=== PATIENT | female | born 1990 | race American Indian/Alaskan Native ===

== ENCOUNTER 2018-05-01 05:45 | Inpatient (IN) | payer BC, MEDICAID ==
[2018-05-01] MEDS ORDERED: ePHEDrine SULFATE IV PRN ×2 (09:32→11:00)
[2018-05-01] MEDS ORDERED: BRETHINE IVP PRN (09:32)
[2018-05-01] MEDS ORDERED: XYLOCAINE 2% INFILTRATI ONE (09:32)
[2018-05-01] MEDS ORDERED: STADOL IV PRN (09:32)
[2018-05-01] MEDS ORDERED: BRETHINE SUB-Q PRN (09:32)
[2018-05-01] MEDS ORDERED: PHENERGAN PO PRN ×2 (09:32→20:30)
--- NOTE | 2018-05-01 09:32 | History and Physical Report ---
History of Present Illness Date of examination: 05/01/18 Date of admission: 05/01/18 09:23 History of present illness: She presented to labor and delivery with complaints of regular contractions since 4 AM this morning. Patient states contractions every 5 minutes. Initial exam by triage nurse service the 2 cm. After walking on recheck patient's cervix had changed to 4 cm. Patient being admitted in active labor. Patient's course complicated by not been seen since 34 weeks and therefore unknown group B status. Menstrual History Regularity: regular Menses every: 28 days Duration: 5 LMP: 07/30/2017 LMP reliability: definite LMP character: normal test type: urine test Date: 09/26/2017 BC at conception: none Planned ? no EDC Calculations LMP: 05/06/2018 EDC Confirmation: 05/14/2018 Past History : 6 Term Births: 3 Living Children: 3 Para: 3 Aborta: 1 Elect. Ab: 1 Spont. Ab: 1 # 1 Delivery date: 01/10/2005 Weeks Gestation: 40 labor: no Delivery type: Hours of labor: 9 Anesthesia type: epidural Delivery location: [facility] Sex: Female weight: 6-9 Comments: delivered by Dr. Gustafson no complications # 2 Delivery date: 05/23/2008 Weeks Gestation: 16 Comments: elective termination no complications # 3 Delivery date: 06/13/2009 Weeks Gestation: 38 Delivery type: Vaginal Anesthesia type: epidural Delivery location: [facility] Infant Sex: female # 4 Delivery date: 2012 Delivery type: SAB # 5 Delivery date: 2014 Weeks Gestation: 39 Delivery type: Delivery location: [facility] Sex: Male weight: 7.0 Comments: no complications Past Medical History: negative no hx of dvt while taking ocp Past Surgical History: negative Past Medical History Social Hx: Patient is single non smoker Genetic History Congenital Heart Defect: Mom: no Dad: no Penny Disease: Mom: no Dad: no Thalassemia Mom: no Dad: no Neural Tube Defect Mom: no Dad: no Down's Syndrome Mom: no Dad: no Dick-Sachs Mom: no Dad: no Sickle Cell Disease/Trait Mom: no Dad: no Hemophilia Mom: no Dad: no Muscular Dystrophy Mom: no Dad: no Cystic Fibrosis Mom: no Dad: no [place] Chorea Mom: no Dad: no Mental Retardation Mom: no Dad: no Fragile X Mom: no Dad: no Other Genetic/Chromosomal Disorder Mom: no Dad: no Child w/other defect Mom: no Dad: no Enviromental Exposures Xray Exposure: no Medication, drug, or alcohol use since LMP: no Chemical/Other Exposure: no Exposure to Cat Liter: no Hx of Parvovirus (Fifth Disease): no Occupational Exposure to Children: none Past History Past Medical History: other (see HPI) Past Surgical History: other (see HPI) 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) Family/Genetic History: other (see HPI) Social history: other (see HPI) - Obstetrical History Expected Date of Delivery: 05/14/18 Actual Gestation: 38 Week(s) 1 Day(s) : 6 Para: 3 Hx # Term Pregnancies: 3 Number of Pregnancies: 0 Spontaneous Abortions: 1 Induced : 1 Number of Living Children: 3 Medications and Allergies Allergies Allergy/AdvReac Type Severity Reaction Status Date / Time No Known Allergies Allergy Verified 01/15/15 10:36 Home Medications Medication Instructions Recorded Confirmed Last Taken Type No Known Home Medications [No 05/01/18 05/01/18 Unknown History Reported Home Medications] - Vital Signs Vital signs: Vital Signs Pulse Pulse Ox 87 98 05/01/18 06:07 05/01/18 06:07 Temp Pulse Resp BP Pulse Ox 98.5 F 93 H 18 116/68 98 05/01/18 06:13 05/01/18 07:57 05/01/18 06:13 05/01/18 06:13 05/01/18 07:57 - Physical Exam Breasts: Positive: deferred Cardiovascular: Regular rate Lungs: Positive: Normal air movement Abdomen: Positive: normal appearance Genitourinary (Female): Positive: normal external genitalia Vulva: both: normal Vagina: Positive: normal moisture Uterus: Positive: enlarged Anus/Rectum: Positive: normal perianal skin Extremities: Positive: edema Deep Tendon Reflex Grade: Normal +2 - Obstetrical FHR: category 2 Uterine Contraction Monitor Mode: Palpation Uterine Contraction Pattern: Regular Uterine Contraction Intensity: Moderate Results Result Diagrams: 05/01/18 09:45 All other labs normal. Assessment and Plan - Patient Problems (1) 38 weeks gestation of Current Visit: No Status: Acute (2) Active labor Current Visit: No Status: Acute Plan to address problem: We'll admit and follow routine labor and delivery protocol. Patient will be started on prophylactic antibiotics due to unknown group B status.
[2018-05-01] MEDS ORDERED: PITOCin/NS 20 UNIT/1000ML DRIP 20 UNITS/1,000 ML BAG IV SCH (10:00)
[2018-05-01] MEDS: LACTATED RINGERS 1,000 ML IV SCH ×2 (10:05→15:37)
[2018-05-01] MEDS ORDERED: POLYCILLIN/NS 2 GM/100 ML 2 GM/100 ML BAG IV ONE (10:05)
[2018-05-01 10:40] LABS: Hematocrit 33.9 % (30.3-42.9); Hemoglobin 11.3 gm/dl (10.1-14.3); Mean Corpuscular HGB Conc 34 % (30-34); Mean Corpuscular Hemoglobin 29 pg (28-32); Mean Corpuscular Volume 86 fl (79-97); Platelet Count 205 K/mm3 (140-440); Red Blood Count 3.94 M/mm3 (3.65-5.03); Red Cell Distribution Width 13.4 % (13.2-15.2)
[2018-05-01] MEDS ORDERED: fentaNYL-BUPIV 2 MCG/ML-0.125% 200 MCG/100 ML BAG EPIDURAL SCH (11:00)
[2018-05-01] MEDS ORDERED: NARCAN 2 MG/2 ML IV PRN (11:00)
--- NOTE | 2018-05-01 11:00 | Anesthesia Consultation ---
Anesthesia Consult and Med Hx Date of service: 05/01/18 - Airway Anesthetic Teeth Evaluation: Good ROM Head & Neck: Adequate Mental/Hyoid Distance: Adequate Mallampati Class: Class II Intubation Access Assessment: Probably Good - Pre-Operative Health Status ASA Pre-Surgery Classification: ASA2 Proposed Anesthetic Plan: Epidural, Spinal - Pulmonary Hx Asthma: No COPD: No Hx Pneumonia: No - Cardiovascular System Hx Hypertension: No - Central Nervous System Hx Seizures: No Hx Psychiatric Problems: No - Endocrine Hx Renal Disease: No Hx End Stage Renal Disease: No Hx Hypothyroidism: No Hx Hyperthyroidism: No - Hematic Hx Anemia: No Hx Sickle Cell Disease: No - Other Systems Hx Alcohol Use: No
[2018-05-01] MEDS ORDERED: AMPICILLIN/NS 1 GM/50 ML 1 GM/50 ML BAG IV SCH (14:00)
[2018-05-01] MEDS ORDERED: PITOCin/NS 30 UNIT/500ML 30 UNITS/500 ML BAG IV SCH (16:00)
--- NOTE | 2018-05-01 16:39 | Event Note ---
Date: 05/01/18 Artificial rupture of membranes with thin meconium fluid. Intrauterine pressure catheter and scalp electrode placed without difficulty. The patient's cervix still 6 cm. Victorino continue Pitocin.
--- NOTE | 2018-05-01 19:01 | Procedure Note ---
OB Delivery Note - Delivery Date of Delivery: 05/01/18 Surgeon: LIAT ETIENNE Estimated blood loss: 300cc - Vaginal Delivery presentation: vertex Delivery position: OA Intrapartum events: meconium Delivery induction: none Delivery augmentation: rupture of membranes, pitocin Delivery monitor: external FHT, external uterine, internal FHT, internal uterine Route of delivery: Delivery placenta: spontaneous Delivery cord: 3 umbilical vessels Episiotomy: none Delivery laceration: none Anesthesia: epidural Delivery comments: Spontaneous vaginal delivery over intact perineum. Male infant crying after delivery suctioned on perineum with very thin meconium. NICU in attendance. - A at 1 minute: 8 at 5 minutes: 9 Infant Gender: Male
[2018-05-01] MEDS ORDERED: TUCKS PAD TP PRN (20:30)
[2018-05-01] MEDS ORDERED: BENADRYL PO PRN (20:30)
[2018-05-01] MEDS ORDERED: NORCO 5/325 PO PRN (20:30)
[2018-05-01] MEDS ORDERED: DULCOLAX PR PRN (20:30)
[2018-05-01] MEDS ORDERED: MILK OF MAGNESIA PO PRN (20:30)
[2018-05-01] MEDS ORDERED: TYLENOL PO PRN (20:30)
[2018-05-01] MEDS ORDERED: LANSINOH TP PRN (20:30)
[2018-05-01] MEDS ORDERED: SODIUM CHLORIDE FLUSH SYRINGE 10 ML IV NR (20:30)
[2018-05-01] MEDS ORDERED: DEEP SEA NS PRN (20:34)
[2018-05-01] MEDS: MOTRIN PO SCH (20:51)
[2018-05-01] MEDS: COLACE PO SCH (21:39)
[2018-05-01] MEDS ORDERED: MINERAL OIL PO PRN (22:00)
[2018-05-02] MEDS: MOTRIN PO SCH ×4 (03:29→23:23)
--- NOTE | 2018-05-02 08:04 | Progress Note ---
Assessment and Plan patient resting, c/o back pain from epidural site. Lochia small, fundus firm, VSSAF, H&H ordered for 0710 this morning waiting for lab to draw. Continue pathway and plan for d/c home tomorrow. - Patient Problems (1) Spontaneous vaginal delivery Current Visit: No Status: Acute Subjective - Subjective Date of service: 05/02/18 Principal diagnosis: day #1 s/p vaginal delivery Patient reports: appetite normal, voiding normally, pain well controlled, ambulating normally, no dizzy ambulation, no nauseated [place]: doing well, nursing well Objective - Vital Signs Latest vital signs: Vital Signs Temp Pulse Resp BP Pulse Ox 05/02/18 02:16 97.9 F 74 20 93/49 98 05/01/18 20:54 98.0 F 85 20 99/63 98 05/01/18 19:57 80 113/59 05/01/18 19:43 91 H 123/66 05/01/18 19:27 90 111/73 05/01/18 19:12 75 106/70 05/01/18 18:57 104 H 110/68 05/01/18 18:42 93 H 112/59 05/01/18 18:27 100 H 115/66 05/01/18 18:23 40 H 05/01/18 18:20 98.9 F 18 05/01/18 18:15 114 H 100 05/01/18 18:12 84 126/68 05/01/18 18:10 87 100 05/01/18 18:05 97 H 100 05/01/18 18:00 89 100 05/01/18 17:57 83 104/55 05/01/18 17:55 85 100 05/01/18 17:50 88 100 05/01/18 17:45 77 100 05/01/18 17:42 78 105/58 05/01/18 17:40 92 H 99 05/01/18 17:35 79 100 05/01/18 17:30 75 100 05/01/18 17:27 79 109/61 05/01/18 17:25 77 100 05/01/18 17:20 89 100 05/01/18 17:15 80 100 05/01/18 17:12 76 109/63 05/01/18 17:10 76 100 06/04/18 17:05 79 100 0618 17:00 76 100 06/18 16:57 80 110/64 06/18 16:55 79 100 06/18 16:50 77 100 06/18 16:47 98.2 F 16 18 16:45 95 H 99 18 16:42 75 74 L 0618 16:40 78 100 06/18 16:35 80 100 18 16:30 91 H 99 18 16:29 59 L 92 18 16:24 75 100 06/18 16:19 74 100 0618 16:14 81 100 18 16:13 83 111/62 05/01/18 16:09 81 100 0618 16:04 73 100 0618 15:59 76 100 /18 15:57 75 104/65 18 15:54 86 100 06/18 15:49 73 100 18 15:44 74 100 0618 15:42 81 103/65 18 15:39 90 100 06/18 15:34 80 100 18 15:29 78 100 0618 15:28 77 108/68 18 15:24 73 100 06/18 15:19 68 100 18 15:14 69 100 18 15:12 71 113/68 18 15:09 77 100 18 15:04 68 100 18 14:59 77 100 0618 14:58 68 108/59 18 14:54 79 100 06/18 14:49 85 99 /18 14:44 83 98 18 14:42 81 103/64 18 14:39 78 97 18 14:34 79 98 06/18 14:29 84 98 18 14:27 88 114/60 06/18 14:24 81 98 06/18 14:19 95 H 98 18 14:14 84 98 18 14:12 77 112/52 06/04/18 14:09 77 98 06/04/18 14:04 83 99 06/04/18 13:59 81 110/63 98 06/04/18 13:54 77 98 06/04/18 13:49 82 99 06/04/18 13:44 80 98 06/04/18 13:41 100 H 101/59 06/04/18 13:39 72 104/62 97 06/04/18 13:37 82 107/63 06/04/18 13:35 76 104/66 06/04/18 13:34 73 97 06/04/18 13:33 80 107/65 06/04/18 13:31 77 104/64 06/04/18 13:29 77 103/58 98 06/04/18 13:28 83 104/53 06/04/18 13:24 76 98 06/04/18 13:23 80 109/56 06/04/18 13:19 79 106/64 99 06/04/18 13:17 78 110/64 06/04/18 13:15 82 99/63 06/04/18 13:14 81 98 06/04/18 13:13 78 106/69 06/04/18 13:11 96 H 102/65 06/04/18 13:09 90 106/61 97 06/04/18 13:07 75 102/57 06/04/18 13:05 80 104/63 06/04/18 13:04 80 98 06/04/18 13:03 77 107/64 06/04/18 13:01 78 107/64 06/04/18 12:59 75 106/61 98 06/04/18 12:57 80 104/63 06/04/18 12:55 72 103/62 06/04/18 12:54 78 99 06/04/18 12:53 83 99/61 06/04/18 12:51 81 100/61 06/04/18 12:49 75 103/57 98 06/04/18 12:47 81 102/63 06/04/18 12:45 78 108/65 06/04/18 12:44 81 98 06/04/18 12:43 82 102/59 06/04/18 12:41 82 103/59 06/04/18 12:39 76 103/65 97 06/04/18 12:37 82 97/61 06/04/18 12:35 83 101/66 06/04/18 12:34 83 98 06/04/18 12:33 88 102/68 92 06/04/18 12:31 76 102/70 06/04/18 12:29 77 104/67 98 06/04/18 12:27 88 107/70 06/04/18 12:25 74 103/61 06/04/18 12:24 77 98 06/04/18 12:23 74 107/69 06/04/18 12:21 72 109/67 06/04/18 12:19 81 107/63 98 06/04/18 12:17 76 108/62 06/04/18 12:15 75 102/62 06/04/18 12:14 76 98 06/04/18 12:13 86 103/64 06/04/18 12:11 69 107/65 06/04/18 12:09 80 112/67 98 06/04/18 12:07 76 111/67 06/04/18 12:05 76 119/67 06/04/18 12:04 86 98 06/04/18 12:03 80 117/69 06/04/18 12:01 81 113/70 06/04/18 11:59 96 H 110/72 98 06/04/18 11:57 82 107/67 06/04/18 11:55 74 112/61 06/04/18 11:54 73 99 06/04/18 11:53 78 111/74 06/04/18 11:51 83 114/67 06/04/18 11:49 85 118/70 06/04/18 11:48 79 99 06/04/18 11:47 86 113/71 06/04/18 11:45 88 117/65 06/04/18 11:43 83 123/71 100 06/04/18 11:41 100 H 129/74 06/04/18 11:38 85 134/77 100 06/04/18 11:19 83 111/70 06/04/18 11:05 83 112/71 06/04/18 10:49 91 H 117/71 06/04/18 10:35 96 H 119/79 06/04/18 10:20 86 109/73 06/04/18 10:05 86 114/63 06/04/18 09:50 88 116/69 05/01/18 09:34 82 112/68 05/01/18 07:57 93 H 98 Intake and Output 05/01/18 05/01/18 05/02/18 15:59 23:59 07:59 Intake Total 691.667 212.267 400 Output Total 550 1100 Balance 691.667 -337.733 -700 Intake: IV 691.667 12.267 Lactated Ringers 1,000 ml 691.667 @ 125 mls/hr IV DIRECT TEJAS Rx#:[id number] PITOCin/NS 30 UNIT/500ML 12.267 30 units In 500 ml @ 4 mls/hr IV TITR TEJAS Rx#: [id number] Oral 200 400 Output: Urine 300 1100 Void 300 1100 Other 250 Other: Total, Intake Amount 200 200 Total, Output Amount 300 500 Estimated Blood Loss 300 - Exam Breasts: Present: normal Cardiovascular: Present: Regular rate Lungs: Present: Clear to auscultation, Normal air movement Abdomen: Present: normal appearance, soft Vulva: both: normal Uterus: Present: normal, firm, fundal height at umbilicus Extremities: Present: normal
[2018-05-02 09:10] LABS: Hematocrit 33.9 % (30.3-42.9); Hemoglobin 11.5 gm/dl (10.1-14.3)
[2018-05-02] MEDS: COLACE PO SCH ×2 (10:05→23:26)
[2018-05-02] MEDS: PRENATAL VITAMIN PO SCH (10:05)
[2018-05-03] MEDS: MOTRIN PO SCH ×2 (05:16→12:29)
--- NOTE | 2018-05-03 08:34 | Discharge Summary ---
Providers - Providers Date of Admission: 05/01/18 09:23 Date of discharge: 05/03/18 (desires d/c home today) Attending physician: LIAT ETIENNE 05/01/18 20:30 Consult to Oim Consultant [CONS] Routine Reason For Exam: assistance with , SNS Primary care physician: LIAT ETIENEN Hospitalization Reason for admission: labor Condition: Good Pertinent studies: post delivery H&H 11.5/33.9 Procedures: vaginal Hospital course: uncomplicated vaginal and course. Disposition: DC- TO HOME OR SELFCARE - Discharge Diagnoses (1) Spontaneous vaginal delivery Status: Acute Core Measure Documentation - Palliative Care Palliative Care/ Comfort Measures: Not Applicable - Core Measures Any of the following diagnoses?: none Exam - Constitutional Vitals: Temp Pulse Resp BP Pulse Ox 98.6 F 68 18 116/68 95 05/03/18 00:30 05/03/18 00:30 05/03/18 00:30 05/03/18 00:30 05/02/18 16:39 General appearance: Present: no acute distress, well-nourished - EENT Eyes: Present: PERRL ENT: hearing intact, clear oral mucosa - Neck Neck: Present: supple, normal ROM - Respiratory Respiratory effort: normal Respiratory: bilateral: CTA - Cardiovascular Heart Sounds: Present: S1 & S2. Absent: rub, click - Extremities Extremities: pulses symmetrical, No edema Peripheral Pulses: within normal limits - Abdominal General gastrointestinal: Present: soft, non-tender, non-distended, normal bowel sounds Female genitourinary: Present: normal - Integumentary Integumentary: Present: clear, warm, dry - Musculoskeletal Musculoskeletal: gait normal, strength equal bilaterally - Psychiatric Psychiatric: appropriate mood/affect, intact judgment & insight - Neurologic Neurologic: CNII-XII intact, moves all extremities - Additional findings Additional findings: Fundus firm, lochia scant, , VSSAF, H&H stable Plan Activity: no restrictions Diet: regular Follow up with: LIAT ETIENNE MD [Primary Care Provider] - 7 Days (Congratulation! Please call [phone] to schedule your son's circumcision in 1 week and your visit in 4 weeks. bring EMLA cream to your son's appointment and await further instuctions. Call for any questions or concerns. ) Prescriptions: Ibuprofen [Motrin 800 MG tab] 800 mg PO Q8HR PRN #30 tablet PRN Reason: Pain Lidocain2.5%/Prilocai2.5% [Emla] 5 gm TP ONCE PRN #1 tube PRN Reason: Pain
[2018-05-03 08:52] VITALS: BP 100/69
[2018-05-03] MEDS: PRENATAL VITAMIN PO SCH (09:48)
[2018-05-03] MEDS: COLACE PO SCH (09:48)
== END 2018-05-03 14:40 | disposition home or self-care (01) | DRG 775 ==
LOC: TRG 05:45 → LD 09:23 → OB 20:16
PROVIDERS: ADMIT Obstetrics & Gynecology; ATTEND Obstetrics & Gynecology
PROC: 10E0XZZ Delivery of Products of Conception, External Approach (ICD-10-PCS; principal; 2018-05-01)
PROC: 3E0R3BZ Introduction of Anesthetic Agent into Spinal Canal, Percutaneous Approach (ICD-10-PCS; 2018-05-01)
PROC: 00HU33Z Insertion of Infusion Device into Spinal Canal, Percutaneous Approach (ICD-10-PCS; 2018-05-01)
PROC: 10H07YZ Insertion of Other Device into Products of Conception, Via Natural or Artificial Opening (ICD-10-PCS; 2018-05-01)
PROC: 10H073Z Insertion of Monitoring Electrode into Products of Conception, Via Natural or Artificial Opening (ICD-10-PCS; 2018-05-01)
DX: O77.0 Labor and delivery complicated by meconium in amniotic fluid (principal); O75.5 Delayed delivery after artificial rupture of membranes; Z3A.38 38 weeks gestation of pregnancy; Z37.0 Single live birth
CPT/HCPCS: 36415; 85014; 85018; 85027; 86592; 86850; 86900; 86901; 87806; 99211; G0463; J0290; J2590; J7120

== ENCOUNTER 2019-06-19 05:52 | Day surgery (SDC) | payer BC ==
--- NOTE | 2019-06-13 15:05 | History and Physical Report ---
History of Present Illness Date of examination: 06/13/19 Date of admission: 06/19/19 Chief complaint: here for tubal ligation History of present illness: Resp Denies cough, dyspnea at rest, excessive sputum, hemoptysis, wheezing and pleurisy. GI Denies nausea, vomiting, diarrhea, constipation, change in bowel habits, abdominal pain, melena, hematochezia, jaundice, gas/bloating, indigestion/heartburn, dysphagia and odynophagia. Endo Denies cold intolerance, heat intolerance, polydipsia, polyphagia, polyuria and unusual weight change. Breast Denies left breast lump, right breast lump, nipple discharge, bloody discharge from nipple, breast pain, abnormal mammogram and breast enlargement. MS Denies back pain, joint pain, joint swelling, muscle cramps, muscle weakness, stiffness, arthritis, sciatica, restless legs, leg pain at night and leg pain with exertion. Derm Denies rash, itching, dryness and suspicious lesions. Neuro Denies paralysis, paresthesias, headache, seizures, tremors, vertigo, transient blindness, frequent falls, frequent headaches and difficulty walking. Psych Denies depression, anxiety, irritability and mood swings. Eyes Denies blurring, diplopia, irritation, discharge, vision loss, eye pain and photophobia. ENT Denies earache, ear discharge, tinnitus, decreased hearing, nasal congestion, nosebleeds, sore throat and hoarseness. Allergy Denies urticaria, allergic rash, hay fever and recurrent infections. Heme Denies abnormal bruising, bleeding and enlarged lymph nodes. 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) Family/Genetic History: other (see hpi) Social history: no significant social history, - Obstetrical History : 6 Medications and Allergies Allergies Allergy/AdvReac Type Severity Reaction Status Date / Time acetaminophen [From Lortab] Allergy N&V Verified 06/13/19 17:38 hydrocodone [From Lortab] Allergy N&V Verified 06/13/19 17:38 Home Medications Medication Instructions Recorded Confirmed Last Taken Type No Known Home Medications [No 06/13/19 06/13/19 Unknown History Reported Home Medications] Review of Systems All systems: negative - Physical Exam Cardiovascular: Normal S1, Normal S2 Lungs: Positive: Clear to auscultation, Normal air movement Abdomen: Positive: normal appearance, soft, normal bowel sounds. Negative: distention, tenderness, guarding Genitourinary (Female): Positive: other (deferred until EUA) Results All other labs normal. Assessment and Plan - Patient Problems (1) Encounter for sterilization Status: Acute Plan to address problem: -admit and prepare for BTL. -consents signed and placed on the chart.
[2019-06-19 06:45] LABS: Hematocrit 40.6 % (30.3-42.9); Hemoglobin 13.7 gm/dl (10.1-14.3); Mean Corpuscular HGB Conc 34 % (30-34); Mean Corpuscular Hemoglobin 30 pg (28-32); Mean Corpuscular Volume 89 fl (79-97); Platelet Count 213 K/mm3 (140-440); Red Blood Count 4.56 M/mm3 (3.65-5.03); Red Cell Distribution Width 13.1 % (13.2-15.2)
[2019-06-19] MEDS ORDERED: MARCAINE 0.5% INFILTRATI ONE ×3 (06:48→07:30)
[2019-06-19] MEDS ORDERED: LACTATED RINGERS 1,000 ML IV SCH (07:00)
[2019-06-19] MEDS ORDERED: DILAUDID ONE (07:17)
[2019-06-19] MEDS ORDERED: DIPRIVAN 10 MG/ML IV ONE (07:17)
[2019-06-19] MEDS ORDERED: DILAUDID IV PRN (07:20)
--- NOTE | 2019-06-19 07:24 | Anesthesia Day of Surgery ---
Anesthesia Day of Surgery - Day of Surgery Patient Examined: Yes Patient H&P Reviewed: Yes Patient is NPO: Yes
--- NOTE | 2019-06-19 07:24 | Anesthesia Consultation ---
Anesthesia Consult and Med Hx Date of service: 06/19/19 - Airway Anesthetic Teeth Evaluation: Good ROM Head & Neck: Adequate Mental/Hyoid Distance: Adequate Mallampati Class: Class I Intubation Access Assessment: Good - Pulmonary Exam CTA: Yes - Cardiac Exam Cardiac Exam: RRR - Pre-Operative Health Status ASA Pre-Surgery Classification: ASA1 Proposed Anesthetic Plan: General - Pulmonary Hx Smoking: No Hx Respiratory Symptoms: No - Cardiovascular System Hx Hypertension: No Hx Heart Attack/AMI: No Hx Percutaneous Transluminal Coronary Angioplasty (PTCA): No Hx Cardia Arrhythmia: No - Central Nervous System Hx Seizures: No CVA: No Hx Psychiatric Problems: No - Gastrointestinal Hx Gastroesophageal Reflux Disease: No - Endocrine Hx Renal Disease: No Hx Liver Disease: No Hx Insulin Dependent Diabetes: No Hx Non-Insulin Dependent Diabetes: No Hx Thyroid Disease: No - Hematic Hx Anemia: No Hx Sickle Cell Disease: No - Other Systems Hx Alcohol Use: Yes (Occas) Hx Obesity: No - Additional Comments Anesthesia Medical History Comments: No hx anesthetic complications.
[2019-06-19] MEDS ORDERED: NEURONTIN ONE (07:30)
[2019-06-19] MEDS ORDERED: NACL 0.9% IR ONE (07:30)
[2019-06-19] MEDS ORDERED: VERSED ONE (07:30)
[2019-06-19] MEDS ORDERED: TRANSDERM-SCOP TD NR (08:00)
[2019-06-19] MEDS ORDERED: NEURONTIN PO NR (08:00)
[2019-06-19] MEDS ORDERED: ANCEF/STERILE WATER 2 GM/20 ML 2 GM/20 ML SYRINGE IV NR (08:00)
[2019-06-19] MEDS ORDERED: XYLOCAINE MPF 2% ONE (08:21)
[2019-06-19] MEDS ORDERED: ZOFRAN ONE (08:21)
[2019-06-19] MEDS ORDERED: BLOXIVERZ ONE (08:21)
[2019-06-19] MEDS ORDERED: ROBINUL ONE (08:21)
[2019-06-19] MEDS ORDERED: TORADOL ONE (08:21)
[2019-06-19] MEDS ORDERED: ZEMURON IV ONE (08:21)
--- NOTE | 2019-06-19 08:35 | Short Stay Summary ---
Short Stay Documentation Date of service: 06/19/19 - History H&P: dictated Social history: no significant social history, - Allergies and Medications Current Medications: Allergies acetaminophen [From Lortab] Allergy (Verified 06/13/19 17:38) N&V hydrocodone [From Lortab] Allergy (Verified 06/13/19 17:38) N&V Home Medications Medication Instructions Recorded Confirmed Last Taken Type RX: No Known Home Medications [No 06/13/19 06/13/19 Unknown History Reported Home Medications] Active Medications Celecoxib (Celebrex) 200 mg PO PREOP NR Stop: 06/19/19 16:00 Gabapentin (Neurontin) 300 mg PO PREOP NR Stop: 06/19/19 16:00 Hydromorphone HCl (Dilaudid) 0.5 mg IV Q10MIN PRN PRN Reason: Pain , Severe (7-10) Stop: 06/19/19 20:00 Cefazolin Sodium (Ancef/Sterile Water 2 Gm/20 Ml) 2 gm in 20 mls @ 80 mls/hr IV PREOP NR; Protocol Stop: 06/19/19 23:59 Lactated Ringer's (Lactated Ringers) 1,000 mls @ 75 mls/hr IV DIRECT TEJAS Last Admin: 06/19/19 06:35 Dose: 75 mls/hr Documented by: Scopolamine (Transderm-Scop) 1 each TD PREOP NR Stop: 06/19/19 20:00 - Brief post op/procedure progress note Date of procedure: 06/19/19 Pre-op diagnosis: desires permanent sterilization Post-op diagnosis: same Procedure: Laparoscopic bilateral salpingectomy Anesthesia: GETA Findings: See operative report Surgeon: ANDREIA NATH Estimated blood loss: minimal Pathology: list (portions of left and right fallopian tube) Specimen disposition: to lab Condition: stable - Hospital course Hospital course: Patient was admitted for above-stated procedure. Patient underwent procedure that was not complicated. Patient will be discharged home when she has met discharge criteria in the PACU. Patient will follow-up in the office as scheduled appointment in 1 week. - Disposition Condition at discharge: Good Disposition: DC-01 TO HOME OR SELFCARE - Discharge Diagnoses (1) Encounter for sterilization Status: Acute Short Stay Discharge Plan Activity: no restrictions Weight Bearing Status: Non-Weight Bearing Diet: regular Wound: open to air Follow up with: ANDREIA NATH MD [Primary Care Provider] - 7 Days Prescriptions: Ibuprofen [Motrin 800 MG tab] 800 mg PO Q6HR PRN #30 tablet PRN Reason: Pain, Moderate (4-6) oxyCODONE [roxiCODONE] 5 mg PO Q6HR PRN #20 tablet PRN Reason: Pain
--- NOTE | 2019-06-19 08:35 | Operative Report ---
Operative Report Operative Report: Date of procedure: 06/19/2019 Pre-operative diagnosis: Desires permanent sterilization Post-operative diagnosis: Same Procedure name(s): Laparoscopic salpingectomy bilateral Surgeon: Dr. Hazel Wave Soldering Machine Operator: DARIA Anesthesia: Gen. endotracheal anesthesia EBL: Minimal Urine output: 200 mL of clear urine out at the beginning of the procedure Fluids: 700 ml Findings: Grossly normal fallopian tubes and ovaries bilaterally normal uterus normal cervix normal vagina Indications: Patient desires permanent sterilization. All risks benefits and alternatives were discussed with the patient. Consents were signed and placed on the chart. Procedure: Patient was taken to the operating room and which she was placed under general endotracheal anesthesia. Patient was then prepped and draped in sterile fashion and placed in dorsal lithotomy position in Jose Luis stirrups. Attention was then turned to the vagina in which a Humi uterine manipulator was placed. Patient underwent straight catheterization. Attention was then turned to the umbilicus and which an infraumbilical incision was made with the scalpel 5mm trocar was placed using direct visualization with the camera. Abdomen was then insufflated with gas. Under direct visualization a 5 mm and 8 mm trocar were placed. Left fallopian tube was grasp with a grasper elevated cauterized and transected with the tripolar instrument and handed off for pathology. This was repeated on the right side. After tubal ligation was completed all i nstruments were removed from the abdomen under direct visualization. All gas was also released from the abdomen. The skin was approximated with 4-0 Monocryl in a subcuticular stitch. The patient tolerated procedure well. Sponge, lap, and needle counts were all correct x3 the patient was taken to the recovery room awake and in stable condition.
[2019-06-19] MEDS ORDERED: ZOFRAN IV PRN (10:00)
[2019-06-19 10:43] VITALS: BP 106/57
--- NOTE | 2019-06-19 11:12 | Post Anesthesia Evaluation ---
- Post Anesthesia Evaluation Patient Participated: Yes Airway Patent: Yes Stable Respiratory Function: Yes Nausea/Vomiting: No Temp > 96.8F: Yes Pain Manageable: Yes Adequeate Hydration: Yes Anesthesia Complications: No Block Receding Appropriately: Not Applicable Patient on Ventilator: No
== END 2019-06-19 10:40 | disposition home or self-care (01) ==
LOC: OR 05:52
PROVIDERS: ATTEND Obstetrics & Gynecology
DX: Z30.2 Encounter for sterilization (principal); G43.909 Migraine, unspecified, not intractable, without status migrainosus; Z79.899 Other long term (current) drug therapy; Z72.89 Other problems related to lifestyle; Z98.890 Other specified postprocedural states; Z88.8 Allergy status to other drugs, medicaments and biological substances
CPT/HCPCS: 36415; 58670; 81025; 85027; 88302; J0690; J1170; J1885; J2250; J2405; J2704; J2710; J7120